=== PATIENT | male | born 1995 | race African-American/Black ===

== ENCOUNTER 2018-04-27 17:33 | Emergency (ER) | payer OTHER ==
[2018-04-27 18:21] VITALS: BP 128/71; PULSE 77; TEMP 98.3; BMI 25.6
[2018-04-27] MEDS ORDERED: DIPHTH,PERTUSS(ACELL),TET 0.5 ML DISP.SYRIN IM ONE (18:21)
--- NOTE | 2018-04-27 18:23 | PDOC ---
Rapid Medical Evaluation Chief Complaint: Laceration Time Seen by Provider: 04/27/18 18:19 Medical Evaluation: Allergies Allergy/AdvReac Type Severity Reaction Status Date / Time No Known Allergies Allergy Verified 04/27/18 18:16 04/27/18 18:19 cut I have performed a brief in-person evaluation of this patient. The patient presents with a chief complaint of: laceration to right finger 2 hrs ago- washed with soap and water. Tetanus Pertinent physical exam findings: 2cm lac to right palmar index finger, FROM against resistance. I have ordered the following: Xray, boostrix The patient will proceed to the ED for further evaluation. 04/27/18 18:22
--- NOTE | 2018-04-27 18:37 | PDOC ---
History of Present Illness - General Chief Complaint: Laceration Stated Complaint: LACERATION Time Seen by Provider: 04/27/18 18:19 - History of Present Illness Initial Comments: 22-year-old male up-to-date on tetanus presents for evaluation of a laceration on his right index finger. 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 He has minimal pain at this time. He has no comorbidities or ALLERGIES to medication. 04/27/18 18:35 Past History - Past Medical History Allergies/Adverse Reactions: Allergies Allergy/AdvReac Type Severity Reaction Status Date / Time No Known Allergies Allergy Verified 04/27/18 18:16 Home Medications: Ambulatory Orders NK [No Known Home Medication] 04/27/18 COPD: No Other medical history: DENIES. - Suicide/Smoking/Psychosocial Hx Smoking History: Never smoked Review of Systems - Review of Systems Musculoskeletal: Yes: See HPI All Other Systems: Reviewed and Negative *Physical Exam - Vital Signs Last Vital Signs Temp Pulse Resp BP Pulse Ox 98.3 F 77 19 128/71 99 04/27/18 18:16 04/27/18 18:16 04/27/18 18:16 04/27/18 18:16 04/27/18 18:16 - Physical Exam Comments: There is a 1 cm laceration on the radial aspect of his right index finger between the MCP J in the PIPJ. FDS and FDP work independently. He has no gross sensorimotor deficits. He is neurovascularly intact. 04/27/18 18:36 Procedures - Laceration/Wound Repair Right Finger Wound Length: to 2.5 cm Wound Explored: clean Wound's Depth, Shape: superficial, linear Irrigated w/ Saline: Yes Betadine Prep: Yes Anesthesia: 1% Lidocaine Amount of Anesthetic (ccs): 6 Wound Debrided: minimal Wound Repaired With: Sutures Suture Size/Type: 4:0, nylon Number of Sutures: 6 Layer Closure: No Sterile Dressing Applied: Yes Splint Applied: No Medical Decision Making - Medical Decision Making Finger was anesthetized with a digital block aseptically. The wound was explored to its base in a bloodless field there is no foreign body identified. No exposed bone or tendon. The wound was closed in a simple interrupted fashion using 4-0 nylon 6 sutures were placed. A dry sterile dressing was placed as well. 06/04/18 19:18 *DC/Admit/Observation/Transfer Diagnosis at time of Disposition: Laceration of finger - Discharge Dispostion Disposition: HOME Condition at time of disposition: Stable Decision to Admit order: No - Referrals Referrals: Mark Medina MD [Staff Physician] - - Patient Instructions Printed Discharge Instructions: DI for Laceration Repair Additional Instructions: Keep the dressing clean and dry for the next 48 hours do not get it wet. Return to the emergency room if you have increased pain drainage or concerned about the wound. Follow-up with hand surgery in the next 1-2 days for further evaluation and treatment options. The stitches should remain in place for a total of 10 days. Again it is very important few to follow-up with hand surgery as advised. - Post Discharge Activity
== END 2018-04-27 19:25 | disposition home or self-care (01) ==
LOC: JERFT 17:33
PROC: 0HQFXZZ Repair Right Hand Skin, External Approach (ICD-10-PCS; principal; 2018-04-27)
PROC: 3E0234Z Introduction of Serum, Toxoid and Vaccine into Muscle, Percutaneous Approach (ICD-10-PCS; 2018-04-27)
DX: S61.210A Laceration without foreign body of right index finger without damage to nail, initial encounter (principal); W27.8XXA Contact with other nonpowered hand tool, initial encounter; Y93.89 Activity, other specified; Y92.89 Other specified places as the place of occurrence of the external cause; Y99.0 Civilian activity done for income or pay
CPT/HCPCS: 73140-TC-RT-FY; 90715; 99281-25